=== PATIENT | male | born 1985 | race Caucasian/White ===

== ENCOUNTER 2016-11-29 16:34 | Emergency (ER) | payer SELFPAY ==
[2016-11-29 17:08] VITALS: BP 159/97
[2016-11-29] MEDS ORDERED: TYLENOL PO ONE (17:08)
[2016-11-29] MEDS ORDERED: MOTRIN PO ONE (20:39)
[2016-11-29] MEDS ORDERED: TESSALON PERLES PO ONE (20:39)
[2016-11-29] MEDS ORDERED: LIDOCAINE VISCOUS 2% PO ONE (20:39)
--- NOTE | 2016-11-29 20:39 | Emergency Department Report ---
HPI - General Chief Complaint: Upper Respiratory Infection Time Seen by Provider: 11/29/16 20:14 - HPI HPI: The patient is a 31-year-old male who presents for evaluation of cough and chest pain. The patient reports a nonproductive cough and chest pain for the past 2 days. His chest pain is bilateral, aching in quality, moderate severity , exacerbated with coughing and improved with rest. He also reports associated waxing and waning fever, scratching in quality mild in severity soreness of throat exacerbated with swallowing, moderate in severity aching generalized myalgias, nausea, and one to 2 episodes of nonbilious, nonbloody emesis. The patient denies neck pain, parasthesias, hemoptysis, palpitations, dizziness, syncope, unilateral leg swelling, calf muscle pain. Patient also denies history of DVT or PE, recent immobilization, or history of cancer. ED Past Medical Hx - Past Medical History Previous Medical History?: Yes Additional medical history: Hx. of pneumonia, MEHRAN and needs C-Pap machine - Surgical History Past Surgical History?: No - Social History Smoking Status: Never Smoker Substance Use Type: Alcohol, Non Opiate Pain - Medications Home Medications: Home Medications Medication Instructions Recorded Confirmed Last Taken Type ALBUTEROL Inhaler [ProAir HFA 2 puff IH QID PRN #1 inhalation 11/29/16 Unknown Rx Inhaler] Doxycycline Hyclate [Doxycycline 100 mg PO Q12HR #20 tab 11/29/16 Unknown Rx Hyclate TAB] Ibuprofen [Motrin] 800 mg PO Q8HR PRN #15 tablet 11/29/16 Unknown Rx Ondansetron [Zofran TAB] 4 mg PO Q8HR PRN #15 tablet 11/29/16 Unknown Rx Promethazine /Codeine 5 ml PO Q6H PRN #90 ml 11/29/16 Unknown Rx [Phenergan/Codeine 6.25-10 mg/5Ml] ED Review of Systems ROS: Stated complaint: GISELL/HEADACHE/COUGH Other details as noted in HPI Constitutional: denies: fever ENT: reports throat pain Respiratory: reports cough denies: shortness of breath Cardiovascular: reports chest pain Endocrine: denies unexplained weight loss or gain Gastrointestinal: denies: abdominal pain, nausea Genitourinary: denies: dysuria Musculoskeletal: denies: leg swelling Skin: denies: rash Neurological: denies: headache Hematological/Lymphatic: denies: easy bleeding or easy bruising Psych: denies sadness or hopelessness Physical Exam - Physical Exam Vital Signs: Vital Signs 11/29/16 03 17:03 17:11 Temperature 100.9 F H Pulse Rate 118 H Respiratory 20 20 Rate Blood Pressure 159/97 O2 Sat by Pulse 100 Oximetry Physical Exam: General: well-nourished, well-developed, no acute distress, patient is morbidly obese Head: Normocephalic, atraumatic Eyes: normal sclera ENT: bialteral nasal congestion present, bilateral tonsilar erythema present, mild, minimal tonsilar swelling, no exudates, no uvula or soft palate deviation Neck: trachea midline, neck supple, No neck stiffness, no cervical adenopathy Respiratory: Breath sounds equal bilaterally, no wheezing, rales, or rhonchi Cardio: S1 and S2 present, no murmurs, rubs, gallops, capillary refill is brisk Abdomen: Normoactive bowel sounds, soft abdomen, no rigidity, no guarding or rebound tenderness Chest WALL/Back: No tenderness to palpation of the chest wall, no CVA tenderness with percussion Musc: No pitting edema Skin: No rash Neuro: no facial drooping, normal speech Psych: Normal affect ED Course Vital Signs 11/29/16 11/29/16 17:03 17:11 Temperature 100.9 F H Pulse Rate 118 H Respiratory 20 20 Rate Blood Pressure 159/97 O2 Sat by Pulse 100 Oximetry ED Medical Decision Making - Medical Decision Making The patient was seen and examined by myself. The patient is placed on a director of marketing communications and continuous pulse ox. On initial evaluation, the patient was found to be in no distress. Evaluation orders were placed. The patient is given viscous lidocaine and by mouth motion for sore throat and pain, Tessalon Perles for cough. X-ray of the chest is unremarkable. Lab results are unremarkable. The patient is given a prescription for doxycyline. The patient was reevaluated and reported that their symptoms were markedly improved. The patient is stable for discharge with outpatient follow-up. The patient is given follow-up and return instructions. The patient expressed understanding and agreed with the plan. The patient is discharged in stable condition. Critical care attestation.: If time is entered above; I have spent that time in minutes in the direct care of this critically ill patient, excluding procedure time. ED Disposition Clinical Impression: Upper respiratory infection, acute, Acute viral syndrome, Acute chest wall pain Pharyngitis, acute Qualifiers: Pharyngitis/tonsillitis etiology: unspecified etiology Qualified Code(s): J02.9 - Acute pharyngitis, unspecified Disposition: DISCHARGED TO HOME OR SELFCARE Is pt being admited?: No Does the pt Need Aspirin: No Condition: Stable Instructions: Chest Pain (ED), Pharyngitis (ED), Viral Syndrome (ED), Upper Respiratory Infection (ED) Prescriptions: ALBUTEROL Inhaler [ProAir HFA Inhaler] 2 puff IH QID PRN #1 inhalation PRN Reason: Shortness Of Breath Doxycycline Hyclate [Doxycycline Hyclate TAB] 100 mg PO Q12HR #20 tab Ibuprofen [Motrin] 800 mg PO Q8HR PRN #15 tablet PRN Reason: Pain Ondansetron [Zofran TAB] 4 mg PO Q8HR PRN #15 tablet PRN Reason: Nausea Promethazine /Codeine [Phenergan/Codeine 6.25-10 mg/5Ml] 5 ml PO Q6H PRN #90 ml PRN Reason: cough Referrals: PRIMARY CARE, [Primary Care Provider] - 3-5 Days Forms: Work/School Release Form(ED) Time of Disposition: 20:42
--- NOTE | 2016-11-30 07:16 | XRay Report ---
CHEST 2 VIEWS INDICATION: Cough and fever. COMPARISON: None similar at this institution. FINDINGS: PA and lateral chest radiographs, 3 images, somewhat limited due to patient body habitus and limited inspiration with slightly crowded lung markings and exaggerated cardiomediastinal silhouette. No focal consolidation, pleural effusions or CHF. Unremarkable bones. CONCLUSION: No definite acute chest process, as described. Thank you for the opportunity to participate in this patient's care.
== END 2016-11-29 21:10 | disposition home or self-care (01) ==
LOC: ED 16:34
DX: J06.9 Acute upper respiratory infection, unspecified (principal); B34.9 Viral infection, unspecified; R07.89 Other chest pain; J02.9 Acute pharyngitis, unspecified
CPT/HCPCS: 71020; 99284

== ENCOUNTER 2019-07-18 22:31 | Emergency (ER) | payer OTHER ==
[2019-07-18 22:48] VITALS: BP 160/90
--- NOTE | 2019-07-18 23:14 | Emergency Department Report ---
ED Extremity Problem HPI - General Chief complaint: Extremity Injury, Lower Stated complaint: LEG SWELLING/FEVER Time Seen by Provider: 07/18/19 23:02 Source: patient Mode of arrival: Ambulatory Limitations: No Limitations - History of Present Illness Initial comments: 34-year-old morbidly obese male, denies any PMH, presents to ED with complaint of posterior right lower leg pain. Patient had large mass on the back of his right lower leg, states it has been there for approximately 2 months. Patient states is started to become irritated and cause pain on yesterday. Patient reports possible fever, states he has felt hot, however has not taken his temperature. Patient has no PCP. MD Complaint: extremity pain -: days(s) (1) Location: right, lower extremity History of Same: No Radiation: none Quality: sharp Consistency: constant Improves with: immobilization Worsens with: walking, palpation Associated Symptoms: fever - Related Data Previous Rx's Medication Instructions Recorded Last Taken Type ALBUTEROL Inhaler (OR & NICU) 2 puff IH QID PRN #1 inhalation 11/29/16 Unknown Rx [ProAir HFA Inhaler] Doxycycline Hyclate [Doxycycline 100 mg PO Q12HR #20 tab 11/29/16 Unknown Rx Hyclate TAB] Ibuprofen [Motrin] 800 mg PO Q8HR PRN #15 tablet 11/29/16 Unknown Rx Ondansetron [Zofran TAB] 4 mg PO Q8HR PRN #15 tablet 11/29/16 Unknown Rx Promethazine /Codeine 5 ml PO Q6H PRN #90 ml 11/29/16 Unknown Rx [Phenergan/Codeine 6.25-10 mg/5Ml] Naproxen [Naprosyn] 500 mg PO BID #20 tablet 07/18/19 Unknown Rx Sulfamethoxazole/Trimethoprim 1 each PO BID 10 Days #20 tablet 07/18/19 Unknown Rx [Bactrim DS TAB] cephALEXin [Keflex] 500 mg PO Q12HR 10 Days #20 cap 07/18/19 Unknown Rx traMADol [Ultram] 50 mg PO Q6HR PRN #7 tablet 07/18/19 Unknown Rx Allergies Allergy/AdvReac Type Severity Reaction Status Date / Time No Known Allergies Allergy Verified 11/29/16 20:14 ED Review of Systems ROS: Stated complaint: LEG SWELLING/FEVER Other details as noted in HPI Comment: All other systems reviewed and negative Constitutional: fever Musculoskeletal: as per HPI ED Past Medical Hx - Past Medical History Previous Medical History?: Yes Hx Hypertension: Yes Additional medical history: Hx. of pneumonia, MEHRAN and needs C-Pap machine, MORBID OBESITY - Surgical History Past Surgical History?: Yes - Social History Smoking Status: Never Smoker Substance Use Type: None - Medications Home Medications: Home Medications Medication Instructions Recorded Confirmed Last Taken Type ALBUTEROL Inhaler (OR & NICU) 2 puff IH QID PRN #1 inhalation 11/29/16 Unknown Rx [ProAir HFA Inhaler] Doxycycline Hyclate [Doxycycline 100 mg PO Q12HR #20 tab 11/29/16 Unknown Rx Hyclate TAB] Ibuprofen [Motrin] 800 mg PO Q8HR PRN #15 tablet 11/29/16 Unknown Rx Ondansetron [Zofran TAB] 4 mg PO Q8HR PRN #15 tablet 11/29/16 Unknown Rx Promethazine /Codeine 5 ml PO Q6H PRN #90 ml 11/29/16 Unknown Rx [Phenergan/Codeine 6.25-10 mg/5Ml] Naproxen [Naprosyn] 500 mg PO BID #20 tablet 07/18/19 Unknown Rx Sulfamethoxazole/Trimethoprim 1 each PO BID 10 Days #20 tablet 07/18/19 Unknown Rx [Bactrim DS TAB] cephALEXin [Keflex] 500 mg PO Q12HR 10 Days #20 cap 07/18/19 Unknown Rx traMADol [Ultram] 50 mg PO Q6HR PRN #7 tablet 07/18/19 Unknown Rx ED Physical Exam - General Limitations: No Limitations General appearance: alert, in no apparent distress, obese - Head Head exam: Present: atraumatic, normocephalic - Eye Eye exam: Present: normal appearance - ENT ENT exam: Present: mucous membranes moist - Neck Neck exam: Present: normal inspection - Respiratory Respiratory exam: Present: normal lung sounds bilaterally. Absent: respiratory distress - Cardiovascular Cardiovascular Exam: Present: normal rhythm, tachycardia (slight) - GI/Abdominal GI/Abdominal exam: Absent: distended - Extremities Exam Extremities exam: Present: other (posteromedial aspect of right lower leg with large mass, possible lymphedema in origen, with tenderness present, no fluctuance, slight erythema) - Neurological Exam Neurological exam: Present: alert, oriented X3 - Psychiatric Psychiatric exam: Present: normal affect, normal mood - Skin Skin exam: Present: warm, dry, intact ED Course Vital Signs 07/18/19 07/18/19 22:41 23:30 Temperature 98.5 F Pulse Rate 108 H 89 Respiratory 18 18 Rate Blood Pressure 160/90 O2 Sat by Pulse 85 97 Oximetry ED Medical Decision Making - Medical Decision Making Morbidly obese male with lymphedema and cellulitis. Pt is afebrile. Will prescribe antibiotics. Outpt follow up advised. Return precautions given. - Differential Diagnosis cellulitis, lymphedema Critical care attestation.: If time is entered above; I have spent that time in minutes in the direct care of this critically ill patient, excluding procedure time. ED Disposition Clinical Impression: Cellulitis of right leg Disposition: - TO HOME OR SELFCARE Is pt being admited?: No Condition: Stable Instructions: Cellulitis (ED) Prescriptions: Sulfamethoxazole/Trimethoprim [Bactrim DS TAB] 1 each PO BID 10 Days #20 tablet cephALEXin [Keflex] 500 mg PO Q12HR 10 Days #20 cap Naproxen [Naprosyn] 500 mg PO BID #20 tablet traMADol [Ultram] 50 mg PO Q6HR PRN #7 tablet PRN Reason: Pain Referrals: [facility] [Provider Group] - 3-5 Days LISA KOLB MD [Staff Physician] - 3-5 Days [facility] [Outside] - 3-5 Days Time of Disposition: 23:14
== END 2019-07-18 23:30 | disposition home or self-care (01) ==
LOC: ED 22:31
DX: L03.115 Cellulitis of right lower limb (principal); I10 Essential (primary) hypertension; E66.01 Morbid (severe) obesity due to excess calories; Z68.45 Body mass index [BMI] 70 or greater, adult; Z79.899 Other long term (current) drug therapy
CPT/HCPCS: 99282

== ENCOUNTER 2021-04-14 14:50 | Emergency (ER) | payer SELFPAY ==
[2021-04-14 15:10] VITALS: BP 139/82
--- NOTE | 2021-04-14 16:35 | Emergency Department Report ---
ED General Adult HPI - General Chief complaint: Extremity Problem,Nontraumatic Stated complaint: BACK OF LEG BLACK Time Seen by Provider: 04/14/21 16:19 Source: patient Mode of arrival: Ambulatory Limitations: No Limitations - History of Present Illness Initial comments: 36-year-old male presents for evaluation of 2 complaints. He states that over the past 2 days he has had cough congestion sore throat and maybe a low-grade fever but denies myalgias nausea vomiting diarrhea or difficulty breathing. He also reports that he has a mass that has been enlarging on his left leg gradually over the past 3 or more months. He has not previously had this evaluated. Symptoms are mild currently nothing makes better or worse. - Related Data Previous Rx's Medication Instructions Recorded Last Taken Type Albuterol Mdi (or & Nicu Only) 2 puff IH QID PRN #1 inhalation 11/29/16 Unknown Rx [ProAir HFA Inhaler] Doxycycline Hyclate [Doxycycline 100 mg PO Q12HR #20 tab 11/29/16 Unknown Rx Hyclate TAB] Ibuprofen [Motrin] 800 mg PO Q8HR PRN #15 tablet 11/29/16 Unknown Rx Ondansetron [Zofran TAB] 4 mg PO Q8HR PRN #15 tablet 11/29/16 Unknown Rx Promethazine /Codeine 5 ml PO Q6H PRN #90 ml 11/29/16 Unknown Rx [Phenergan/Codeine 6.25-10 mg/5Ml] Naproxen [Naprosyn] 500 mg PO BID #20 tablet 07/18/19 Unknown Rx Sulfamethoxazole/Trimethoprim 1 each PO BID 10 Days #20 tablet 07/18/19 Unknown Rx [Bactrim DS TAB] cephALEXin [Keflex] 500 mg PO Q12HR 10 Days #20 cap 07/18/19 Unknown Rx traMADoL [Ultram] 50 mg PO Q6HR PRN #7 tablet 07/18/19 Unknown Rx Allergies Allergy/AdvReac Type Severity Reaction Status Date / Time No Known Allergies Allergy Verified 11/29/16 20:14 ED Review of Systems ROS: Stated complaint: BACK OF LEG BLACK Other details as noted in HPI Comment: All other systems reviewed and negative ED Past Medical Hx - Past Medical History Previous Medical History?: Yes Hx Hypertension: Yes Additional medical history: Hx. of pneumonia, MEHRAN and needs C-Pap machine, MORBID OBESITY - Surgical History Past Surgical History?: No - Social History Smoking Status: Never Smoker Substance Use Type: None - Medications Home Medications: Home Medications Medication Instructions Recorded Confirmed Last Taken Type Albuterol Mdi (or & Nicu Only) 2 puff IH QID PRN #1 inhalation 11/29/16 Unknown Rx [ProAir HFA Inhaler] Doxycycline Hyclate [Doxycycline 100 mg PO Q12HR #20 tab 11/29/16 Unknown Rx Hyclate TAB] Ibuprofen [Motrin] 800 mg PO Q8HR PRN #15 tablet 11/29/16 Unknown Rx Ondansetron [Zofran TAB] 4 mg PO Q8HR PRN #15 tablet 11/29/16 Unknown Rx Promethazine /Codeine 5 ml PO Q6H PRN #90 ml 11/29/16 Unknown Rx [Phenergan/Codeine 6.25-10 mg/5Ml] Naproxen [Naprosyn] 500 mg PO BID #20 tablet 07/18/19 Unknown Rx Sulfamethoxazole/Trimethoprim 1 each PO BID 10 Days #20 tablet 07/18/19 Unknown Rx [Bactrim DS TAB] cephALEXin [Keflex] 500 mg PO Q12HR 10 Days #20 cap 07/18/19 Unknown Rx traMADoL [Ultram] 50 mg PO Q6HR PRN #7 tablet 07/18/19 Unknown Rx ED Physical Exam - General Limitations: No Limitations General appearance: alert, in no apparent distress - Head Head exam: Present: atraumatic, normocephalic - Eye Eye exam: Present: normal appearance - ENT ENT exam: Present: normal exam, mucous membranes moist - Neck Neck exam: Present: normal inspection - Respiratory Respiratory exam: Present: normal lung sounds bilaterally. Absent: respiratory distress - Cardiovascular Cardiovascular Exam: Present: regular rate, normal rhythm. Absent: systolic murmur, diastolic murmur, rubs, gallop - GI/Abdominal GI/Abdominal exam: Present: soft, normal bowel sounds - Rectal Rectal exam: Present: deferred - Extremities Exam Extremities exam: Present: other (Exam is severely limited secondary to body habitus however there is a mass extending from the inferior part of the left posterior thigh with some overlying skin change but no erythema that is approximately the size of a bowling ball) - Back Exam Back exam: Present: normal inspection - Neurological Exam Neurological exam: Present: alert, oriented X3 - Psychiatric Psychiatric exam: Present: normal affect, normal mood - Skin Skin exam: Present: warm, dry, intact, normal color. Absent: rash ED Course Vital Signs 04/14/21 04/14/21 15:09 17:01 Temperature 99.5 F Pulse Rate 101 H 98 H Respiratory 16 Rate Blood Pressure 139/82 [Right] O2 Sat by Pulse 98 Oximetry ED Medical Decision Making - Radiology Data Radiology results: image reviewed interpreted by me: neg cxr - Medical Decision Making Patient presents with 2 complaints. First he states he has cough congestion sore throat for the past couple days with maybe a low-grade fever but no GI symptoms and no difficulty breathing. Does state that his taste seems to be off a little bit as well. He is not vaccinated for COVID-19 and I have discussed my concerns that he could have COVID-19. We will also check chest x-ray to rule out pneumonia and strep swab to rule out strep otherwise we will treat as a nonspecific viral illness. Second he has a large mass that has been enlarging on his left leg for the past few months on exam this is approximately bowling ball sized with overlying induration and skin change, no erythema. Differentials for this include lipoma versus malignancy versus less likely infectious etiology given duration of symptoms. I do not see an emergent need for further evaluation on this as it is more of a chronic issue however he must follow-up with primary care or general surgery for further evaluation of this. Discussed with Dr. Adame who agrees with this plan. - Differential Diagnosis strep, uri, viral syndrome, lipoma, malignancy Critical care attestation.: If time is entered above; I have spent that time in minutes in the direct care of this critically ill patient, excluding procedure time. ED Disposition Clinical Impression: Viral URI Mass of leg Qualifiers: Laterality: left Qualified Code(s): R22.42 - Localized swelling, mass and lump, left lower limb Disposition: -01 TO HOME OR SELFCARE Is pt being admited?: No Condition: Good Instructions: Upper Respiratory Infection, Adult, [id number] Referrals: PRIMARY CAREMD [Primary Care Provider] - 3-5 Days MANDY MEJIAS MD [Staff Physician] - 3-5 Days Time of Disposition: 17:31
--- NOTE | 2021-04-14 17:28 | XRay Report ---
CHEST 1 VIEW 04/14/2021 5:00 PM INDICATION / CLINICAL INFORMATION: cough. COMPARISON: 2 views of the chest from 11/29/2016 FINDINGS: SUPPORT DEVICES: None. HEART / MEDIASTINUM: No significant abnormality. LUNGS / PLEURA: No significant pulmonary abnormality. No significant pleural effusion. No pneumothora x. ADDITIONAL FINDINGS: No significant additional findings. IMPRESSION: 1. No acute abnormality of the chest. Signer Name: Preston Wong MD Signed: 04/14/2021 5:24 PM Workstation Name: [id number]
== END 2021-04-14 18:12 | disposition home or self-care (01) ==
LOC: ED 14:50
DX: J06.9 Acute upper respiratory infection, unspecified (principal); R22.42 Localized swelling, mass and lump, left lower limb; I10 Essential (primary) hypertension; E66.01 Morbid (severe) obesity due to excess calories
CPT/HCPCS: 71045; 87116; 87430; 99283